=== PATIENT | male | born 1980 | race Caucasian/White ===

== ENCOUNTER 2018-04-19 18:14 | Emergency (ER) | payer MEDICAID ==
[2018-04-19] MEDS: HYDROCODONE/APAP (5/325) TAB PO (20:16)
[2018-04-19] MEDS: METHYLPREDNISOLONE 125 MG INJ IM (20:17)
[2018-04-19] MEDS: KETOROLAC 30 MG INJ IM (20:17)
== END 2018-04-19 20:45 | disposition home or self-care (01) ==
LOC: FTE 18:14
DX: M54.42 Lumbago with sciatica, left side (principal)
CPT/HCPCS: 96372; 99284-25